=== PATIENT | male | born 1985 | race African-American/Black ===

== ENCOUNTER 2023-03-25 19:45 | Emergency (ER) | payer SELFPAY | END 2023-03-25 20:39 | disposition home or self-care (01) | LOC: LL.ED 19:45 | DX: S83.91XA Sprain of unspecified site of right knee, initial encounter (principal); X50.9XXA Other and unspecified overexertion or strenuous movements or postures, initial encounter; Y93.67 Activity, basketball | CPT/HCPCS: 73562-RT; 99283 ==